=== PATIENT | male | born 1965 | race Caucasian/White ===

== ENCOUNTER 2023-08-17 21:53 | Emergency (ER) | payer OTHER ==
[~2023-08-17] VITALS: Ht 180.3 cm; Wt 99.8 kg
[2023-08-17] MEDS ORDERED: MECLIZINE HCL 25 MG TABLET ONE (23:15)
[2023-08-17] MEDS ORDERED: ONDANSETRON HCL/PF 4 MG/2 ML VIAL ONE (23:15)
[2023-08-17] MEDS: IV NS 0.9% 1,000 ML BAG IV ONE (23:15)
[2023-08-17] MEDS: ONDANSETRON HCL/PF 4 MG/2 ML VIAL IVP ONE (23:16)
[2023-08-17] MEDS: MECLIZINE HCL 12.5 MG TABLET PO ONE (23:16)
[2023-08-17 23:39] LABS: BASOPHILS # (AUTO) 0.1 K/uL (0.0-0.2); BASOPHILS % (AUTO) 0.3 % (0.0-2.0); EOSINOPHILS % (AUTO) 0.1 % (0.0-6.0); HEMATOCRIT 47 % (39-51); HEMOGLOBIN 15.2 g/dL (13.5-17.5); LYMPHOCYTES % (AUTO) 10.8 % (20.0-44.0); MEAN CORPUSCULAR HEMOGLOBIN 28 PG (26.0-33.0); MEAN CORPUSCULAR HGB CONC 33 g/dl (31.0-36.0); MEAN CORPUSCULAR VOLUME 85 fL (80-96); MONOCYTES # (AUTO) 1.1 K/uL (0.1-1.30); MONOCYTES % (AUTO) 5.8 % (2.0-12.0); NEUTROPHILS # (AUTO) 15.4 K/uL (1.8-8.9); PLATELET COUNT (AUTO) 376 K/uL (150-450); RED BLOOD CELL COUNT(AUTO) 5.45 MIL/uL (4.5-6.0); RED CELL DISTRIBUTION WIDTH 14.4 % (11.5-15.0); WHITE BLOOD COUNT (AUTO) 18.6 K/uL (4.3-11.0)
[2023-08-17 23:52] LABS: INR 1.01 (0.91-1.10); PARTIAL THROMBOPLASTIN TIME 25.7 SEC (24.3-34.3); PROTHROMBIN TIME 10.7 SECS (9.2-11.1)
[2023-08-17 23:57] LABS: CALCIUM, SERUM 9.2 mg/dL (8.5-10.1); CARBON DIOXIDE 28 mmol/L (21-32); CHLORIDE 103 mmol/L (98-107); CREATININE 1.2 mg/dL (0.6-1.3); GLUCOSE 125 mg/dL (74-106); SODIUM SERUM 142 mmol/L (136-145); UREA NITROGEN, BLOOD 13 mg/dL (7-18)
[2023-08-18 00:03] LABS: ALANINE AMINOTRANSFERASE 34 U/L (12-78); ALBUMIN 3.7 g/dL (3.4-5.0); ALKALINE PHOSPHATASE 80 U/L (46-116); ASPARTATE AMINOTRANSFERASE 24 U/L (15-37); BILIRUBIN,DIRECT 0.2 mg/dL (0.0-0.2); BILIRUBIN,TOTAL 0.7 mg/dL (0.2-1.0)
[2023-08-18 00:28] LABS: APPEARANCE,URINE CLEAR (CLEAR); BILIRUBIN,URINE 1+ (NEGATIVE); BLOOD, URINE TRACE-INTA Ery/uL (NEGATIVE); COLOR,URINE YELLOW (YELLOW); KETONES,URINE 3+ mg/dL (NEGATIVE); LEUKOCYTE ESTERASE ,URINE NEGATIVE (NEGATIVE); NITRITE, URINE NEGATIVE (NEGATIVE); PH,URINE 6.5 (5.0-8.0); PROTEIN,URINE 1+ mg/dl (NEGATIVE); UGLUCOSE NEGATIVE (NEGATIVE)
[2023-08-18] MEDS ORDERED: MECL-182 PO (00:48)
[2023-08-18] MEDS ORDERED: ONDA4TAB5 PO (00:48)
[2023-08-18 00:59] VITALS: BP 138/89; TEMP 98; O2SAT 96
[2023-08-18 01:53] LABS: ADD URINE CULTURE NO; BACTERIA,URINE 1+ /HPF (None Seen); MUCUS,URINE Few /LPF (None Seen); RBC,URINE 0-2 /HPF (0-2); SQUAMOUS EPITHELIAL CELL,UR None Seen /HPF (None Seen); WBC,URINE 0-2 /HPF (0-3)
[2023-08-19] MEDS ORDERED: GUAI600T53 PO (16:53)
== END 2023-08-18 01:01 | disposition home or self-care (01) ==
LOC: ER 22:06
DX: R42 Dizziness and giddiness (principal); Z79.899 Other long term (current) drug therapy; Z60.2 Problems related to living alone
CPT/HCPCS: 99285; 96374; 70450; 71045; 96361; 93005; 85025; 80048; 80076; 36415; 84484; 85730; 81001; J8597; J2405; J7030

== ENCOUNTER 2023-08-19 12:11 | Inpatient (IN) | payer OTHER ==
[~2023-08-19] VITALS: Ht 175.3 cm; Wt 93.4 kg
[2023-08-19] VITALS (13 sets, daily range): BP systolic 98–154; BP diastolic 64–135; TEMP 100.6; O2SAT 100
[~2023-08-19 12:11] MED LIST: MECL-182 PO; ONDA4TAB5 PO
[2023-08-19] MEDS ORDERED: ATROPINE SULFATE 1 MG/10 ML DISP.SYRIN IV ONE (12:15)
[2023-08-19] MEDS ORDERED: NALOXONE PREFILLED SYRINGE 2 MG/2 ML SYRINGE ONE (12:16)
[2023-08-19] MEDS: NALOXONE PREFILLED SYRINGE 2 MG/2 ML SYRINGE IV ONE (12:21)
[2023-08-19] MEDS: VANCOMYCIN 1 GM in IV D5W 250 ML IV ONE (12:30)
[2023-08-19] MEDS: IV NS 0.9% 1,000 ML BAG IV ONE ×3 (12:30→16:00)
[2023-08-19] MEDS: PIPERACILLIN /TAZOBACTAM 3.375 G in IV D5W 50 ML IV ONE (12:30)
[2023-08-19 13:04] LABS: INR 1.03 (0.91-1.10); PARTIAL THROMBOPLASTIN TIME 27.6 SEC (24.3-34.3); PROTHROMBIN TIME 10.9 SECS (9.2-11.1)
[2023-08-19 13:06] LABS: APPEARANCE,URINE CLEAR (CLEAR); BILIRUBIN,URINE 1+ (NEGATIVE); BLOOD, URINE 2+ Ery/uL (NEGATIVE); COLOR,URINE YELLOW (YELLOW); KETONES,URINE 2+ mg/dL (NEGATIVE); LEUKOCYTE ESTERASE ,URINE NEGATIVE (NEGATIVE); NITRITE, URINE NEGATIVE (NEGATIVE); PROTEIN,URINE 2+ mg/dl (NEGATIVE); UGLUCOSE NEGATIVE (NEGATIVE)
[2023-08-19 13:13] LABS: BASOPHILS % (AUTO) 0.3 % (0.0-2.0); HEMATOCRIT 45 % (39-51); HEMOGLOBIN 14.9 g/dL (13.5-17.5); LYMPHOCYTES # (AUTO) 1.7 K/uL (0.8-4.8); LYMPHOCYTES % (AUTO) 11.1 % (20.0-44.0); MEAN CORPUSCULAR HEMOGLOBIN 28 PG (26.0-33.0); MEAN CORPUSCULAR HGB CONC 33 g/dl (31.0-36.0); MEAN CORPUSCULAR VOLUME 84 fL (80-96); MONOCYTES # (AUTO) 1.4 K/uL (0.1-1.30); NEUTROPHILS # (AUTO) 12.2 K/uL (1.8-8.9); NEUTROPHILS % (AUTO) 79.6 % (43.0-81.0); PLATELET COUNT (AUTO) 343 K/uL (150-450); RED BLOOD CELL COUNT(AUTO) 5.32 MIL/uL (4.5-6.0); RED CELL DISTRIBUTION WIDTH 14.5 % (11.5-15.0); WHITE BLOOD COUNT (AUTO) 15.4 K/uL (4.3-11.0)
[2023-08-19 13:22] LABS: ADD URINE CULTURE NO; BACTERIA,URINE 1+ /HPF (None Seen); MUCUS,URINE Moderate /LPF (None Seen); SQUAMOUS EPITHELIAL CELL,UR None Seen /HPF (None Seen); WBC,URINE NONE SEEN /HPF (0-3)
[2023-08-19 13:23] LABS: AMPHETAMINE, URINE NEGATIVE (NEGATIVE); BARBITURATE, URINE NEGATIVE (NEGATIVE); BENZODIAZEPINE, URINE NEGATIVE (NEGATIVE); COCCAINE, URINE NEGATIVE (NEGATIVE); OPIATE, URINE NEGATIVE (NEGATIVE); PHENCYCLIDINE SCREEN,URINE NEGATIVE (NEGATIVE)
[2023-08-19 13:30] LABS: CANNABINOID, URINE POSITIVE (NEGATIVE)
[2023-08-19 14:13] LABS: ALANINE AMINOTRANSFERASE 23 U/L (12-78); ALBUMIN 3.6 g/dL (3.4-5.0); ALKALINE PHOSPHATASE 69 U/L (46-116); ASPARTATE AMINOTRANSFERASE 18 U/L (15-37); BILIRUBIN,DIRECT 0.2 mg/dL (0.0-0.2); BILIRUBIN,TOTAL 0.8 mg/dL (0.2-1.0); CARBON DIOXIDE 23 mmol/L (21-32); CHLORIDE 104 mmol/L (98-107); GLUCOSE 128 mg/dL (74-106); LIPASE 30 U/L (16-77); POTASSIUM 3.3 mmol/L (3.5-5.1); SODIUM SERUM 141 mmol/L (136-145); TOTAL PROTEIN, SERUM 8.7 g/dL (6.4-8.2); UREA NITROGEN, BLOOD 15 mg/dL (7-18)
[2023-08-19] MEDS: CEFTRIAXONE 2 G in IV D5W 50 ML IV ONE (14:30)
[2023-08-19] MEDS ORDERED: KETAMINE HCL(200MG/20ML) 10 MG/ML VIAL IV ONE (15:00)
[2023-08-19] MEDS: ACYCLOVIR IV 1 GM in IV D5W 250 ML IV ONE (15:00)
[2023-08-19 15:10] LABS: LACTIC ACID 2.7 mmol/L (0.4-2.0)
[2023-08-19] MEDS ORDERED: PROPOFOL 100 ML ONE (15:19)
[2023-08-19] MEDS ORDERED: LORAZEPAM INJ 2 MG/ML VIAL ONE (15:24)
[2023-08-19] MEDS: LORAZEPAM INJ 2 MG/ML VIAL IV ONE (15:26)
[2023-08-19] MEDS: PROPOFOL 200 MG/20 ML VIAL IV ONE (15:28)
[2023-08-19] MEDS: LEVETIRACETAM (500MG) 2,000 MG in IV NS 0.9% 80 ML IV ONE (15:30)
[2023-08-19] MEDS ORDERED: LEVETIRACETAM (500MG) 1,000 MG in IV NS 0.9% 90 ML IV ONE (15:30)
[2023-08-19] MEDS: PROPOFOL 100 ML IV PRN ×2 (15:49→20:14)
[2023-08-19] MEDS ORDERED: GUAI600T53 PO (16:53)
[2023-08-19] MEDS ORDERED: LORAZEPAM INJ 2 MG/ML VIAL IV PRN (18:00)
[2023-08-19] MEDS: POTASSIUM CHLORIDE 20 MEQ TAB.PRT.SR PO ONE (18:00)
[2023-08-19] MEDS ORDERED: ONDANSETRON HCL/PF 4 MG/2 ML VIAL IVP PRN (18:00)
[2023-08-19] MEDS: POTASSIUM CHLORIDE 20 MEQ POWDER PACKET PO ONE (18:00)
[2023-08-19 18:11] LABS: THYROID STIMULATING HORMONE 0.723 uIU/mL (0.358-3.74)
[2023-08-19] MEDS: ACETAMINOPHEN 650 MG/SUPP.RECT RC PRN (20:23)
[2023-08-19] MEDS: CEFTRIAXONE 2 G in IV D5W 100 ML IV SCH (20:28)
[2023-08-19] MEDS: ACYCLOVIR IV 500 MG in IV D5W 100 ML IV SCH (20:31)
[2023-08-19] MEDS: VANCOMYCIN 750 MG in IV D5W 250 ML IV SCH (20:31)
[2023-08-19] MEDS: IV D5/0.45 NACL 1,000 ML IV PRN (20:32)
[2023-08-19] MEDS: IV NS 0.9% 250 ML IV PRN (21:01)
[2023-08-19 23:00] LABS: CSF GLUCOSE 80 mg/dL (40-70); CSF PROTEIN 62.22 mg/dL (15-45)
[2023-08-19] MEDS: POTASSIUM CHLORIDE 20 MEQ POWDER PACKET GT ONE ×2 (23:33)
[2023-08-20] VITALS (25 sets, daily range): BP systolic 98–186; BP diastolic 64–118; TEMP 98.9–101; O2SAT 75–100
[2023-08-20 01:29] LABS: CSF APPEARANCE CLEAR (CLEAR); CSF COLOR COLORLESS (COLORLESS); CSF VOLUME 12.4 mL
[2023-08-20 01:47] LABS: CSF WHITE BLOOD CELL COUNT 14 /cumm (0-5)
[2023-08-20 01:48] LABS: CSF WHITE BLOOD CELL COUNT 4 /cumm (0-5)
[2023-08-20] MEDS: RIFAXIMIN 550 MG TABLET GT SCH (02:08)
[2023-08-20 05:14] LABS: BASOPHILS % (AUTO) 0.4 % (0.0-2.0); EOSINOPHILS % (AUTO) 0.1 % (0.0-6.0); HEMATOCRIT 41 % (39-51); HEMOGLOBIN 13.1 g/dL (13.5-17.5); LYMPHOCYTES # (AUTO) 2.4 K/uL (0.8-4.8); LYMPHOCYTES % (AUTO) 18.6 % (20.0-44.0); MEAN CORPUSCULAR HEMOGLOBIN 28 PG (26.0-33.0); MEAN CORPUSCULAR HGB CONC 32 g/dl (31.0-36.0); MEAN CORPUSCULAR VOLUME 86 fL (80-96); MONOCYTES # (AUTO) 1.3 K/uL (0.1-1.30); MONOCYTES % (AUTO) 10.3 % (2.0-12.0); NEUTROPHILS # (AUTO) 9.1 K/uL (1.8-8.9); NEUTROPHILS % (AUTO) 70.6 % (43.0-81.0); PLATELET COUNT (AUTO) 291 K/uL (150-450); RED BLOOD CELL COUNT(AUTO) 4.77 MIL/uL (4.5-6.0); RED CELL DISTRIBUTION WIDTH 14.6 % (11.5-15.0); WHITE BLOOD COUNT (AUTO) 12.8 K/uL (4.3-11.0)
[2023-08-20 05:29] LABS: CALCIUM, SERUM 8.2 mg/dL (8.5-10.1); MAGNESIUM 1.9 mg/dL (1.8-2.4); PHOSPHORUS 2.8 mg/dL (2.5-4.9)
[2023-08-20] MEDS: LEVETIRACETAM (500MG) 1,000 MG in IV NS 0.9% 90 ML IV SCH ×2 (05:38→21:17)
[2023-08-20 05:47] LABS: THYROID STIMULATING HORMONE 0.62 uIU/mL (0.358-3.74)
[2023-08-20] MEDS: PANTOPRAZOLE 40 MG VIAL IV SCH (08:39)
[2023-08-20 09:45] LABS: ABG BASE EXCESS -0.3 mmol/L; ABG PCO2 33.3 mmHg (35.0-45.0); ABG PH 7.454 (7.350-7.450); ABG PO2 67.1 mmHg (75.0-100.0); ABG TOTAL HEMOGLOBIN 14.9 G/dL (13.5-18.0); COHb 0.5 % (0.5-1.5); MetHb 0.2 % (0.0-1.5); O2Hb 93.3 % (94.0-97.0); SITE, ABG Left Radial; VENT MODE, BG room air
[2023-08-20 09:46] LABS: ABG BASE EXCESS -0.1 mmol/L; ABG OXYGEN SATURATION 97.3 % (92.0-98.5); ABG PCO2 44.9 mmHg (35.0-45.0); ABG PH 7.372 (7.350-7.450); ABG PO2 99.9 mmHg (75.0-100.0); ABG TOTAL HEMOGLOBIN 13.5 G/dL (13.5-18.0); COHb 0.3 % (0.5-1.5); MetHb 0.4 % (0.0-1.5); O2Hb 96.6 % (94.0-97.0); PEEP,BG 5 cm H2O; SITE, ABG Left Radial; VENT MODE, BG AC @ 100%; VT, ABG 500 mL
[2023-08-20 09:50] LABS: ABG BASE EXCESS -1.7 mmol/L; ABG OXYGEN SATURATION 97.1 % (92.0-98.5); ABG PCO2 38.9 mmHg (35.0-45.0); ABG PH 7.389 (7.350-7.450); ABG PO2 92.9 mmHg (75.0-100.0); ABG TOTAL HEMOGLOBIN 13.7 G/dL (13.5-18.0); AaDO2 147.6 mmHg; COHb 0.8 % (0.5-1.5); MetHb 0.3 % (0.0-1.5); PEEP,BG 5 cm H2O; SITE, ABG Left Radial; VT, ABG 500 mL
[2023-08-20] MEDS ORDERED: POTASSIUM CHLORIDE 20 MEQ POWDER PACKET NG SCH (10:00)
[2023-08-20] MEDS: POTASSIUM CL. PREMIX PERIPHER. 50 ML IV SCH (10:56)
[2023-08-20 15:13] LABS: HIV-1 p24 ANTIGEN NON REACTIVE (NONREACTIVE); HIV-1/2 ANTIBODY NON REACTIVE (NONREACTIVE)
[2023-08-20] MEDS: CEFTRIAXONE 2 G in IV D5W 100 ML IV SCH (21:18)
[2023-08-21] VITALS (34 sets, daily range): BP systolic 114–187; BP diastolic 74–118; TEMP 98.6–100.1; O2SAT 97–100
[2023-08-21 04:55] LABS: BASOPHILS # (AUTO) 0.1 K/uL (0.0-0.2); BASOPHILS % (AUTO) 0.6 % (0.0-2.0); EOSINOPHILS # (AUTO) 0.2 K/uL (0.0-0.7); HEMATOCRIT 40 % (39-51); LYMPHOCYTES # (AUTO) 2.4 K/uL (0.8-4.8); LYMPHOCYTES % (AUTO) 22.3 % (20.0-44.0); MEAN CORPUSCULAR HEMOGLOBIN 28 PG (26.0-33.0); MEAN CORPUSCULAR HGB CONC 33 g/dl (31.0-36.0); MEAN CORPUSCULAR VOLUME 85 fL (80-96); MONOCYTES # (AUTO) 1.2 K/uL (0.1-1.30); MONOCYTES % (AUTO) 11.2 % (2.0-12.0); NEUTROPHILS # (AUTO) 6.7 K/uL (1.8-8.9); NEUTROPHILS % (AUTO) 63.9 % (43.0-81.0); PLATELET COUNT (AUTO) 278 K/uL (150-450); RED CELL DISTRIBUTION WIDTH 14.3 % (11.5-15.0); WHITE BLOOD COUNT (AUTO) 10.6 K/uL (4.3-11.0)
[2023-08-21 05:14] LABS: ALBUMIN 2.7 g/dL (3.4-5.0); BILIRUBIN,TOTAL 0.6 mg/dL (0.2-1.0); CALCIUM, SERUM 8.2 mg/dL (8.5-10.1); CREATININE 0.9 mg/dL (0.6-1.3); MAGNESIUM 1.7 mg/dL (1.8-2.4); PHOSPHORUS 3.6 mg/dL (2.5-4.9)
[2023-08-21] MEDS: Magnesium 1GM/D5W 100ML PREMIX 100 ML IV SCH (08:41)
[2023-08-21] MEDS: POTASSIUM CHLORIDE 20 MEQ POWDER PACKET GT SCH (08:42)
[2023-08-21] MEDS ORDERED: JEVITY 1.2 CAL 1,000 ML BOTTLE GT PRN (11:00)
[2023-08-21] MEDS: JEVITY 1.2 CAL 1,000 ML BOTTLE GT PRN (12:00)
[2023-08-21] MEDS: Z GUARD REMEDY 4 OZ OINT TP PRN (13:43)
[2023-08-21 15:52] LABS: C-REACTIVE PROTEIN 0.53 mg/dL (0.0-0.30)
[2023-08-21] MEDS ORDERED: IOHEXOL-300 100 ML VIAL IV ONE (16:02)
[2023-08-21] MEDS ORDERED: CT SWABBABLE VALVE TRANS SET 1 EA INFUS.SET MC ONE (16:02)
[2023-08-21] MEDS ORDERED: IV NS 0.9% 250 ML IV ONE (16:02)
[2023-08-21] MEDS: THIAMINE IV SCH (18:51)
[2023-08-21] MEDS: D5W IV SCH (18:51)
[2023-08-21] MEDS ORDERED: Thiamine 250 MG in IV D5W 50 ML IV SCH (19:00)
[2023-08-22] VITALS (33 sets, daily range): BP systolic 121–176; BP diastolic 75–108; TEMP 97.5–100.1; O2SAT 96–100
[2023-08-22 03:51] LABS: BASOPHILS # (AUTO) 0.1 K/uL (0.0-0.2); BASOPHILS % (AUTO) 0.4 % (0.0-2.0); EOSINOPHILS # (AUTO) 0.5 K/uL (0.0-0.7); EOSINOPHILS % (AUTO) 3.8 % (0.0-6.0); HEMATOCRIT 43 % (39-51); HEMOGLOBIN 13.9 g/dL (13.5-17.5); LYMPHOCYTES # (AUTO) 2.2 K/uL (0.8-4.8); LYMPHOCYTES % (AUTO) 17.4 % (20.0-44.0); MEAN CORPUSCULAR HEMOGLOBIN 28 PG (26.0-33.0); MEAN CORPUSCULAR HGB CONC 32 g/dl (31.0-36.0); MEAN CORPUSCULAR VOLUME 85 fL (80-96); MONOCYTES # (AUTO) 1.3 K/uL (0.1-1.30); MONOCYTES % (AUTO) 10.1 % (2.0-12.0); NEUTROPHILS # (AUTO) 8.6 K/uL (1.8-8.9); NEUTROPHILS % (AUTO) 68.3 % (43.0-81.0); PLATELET COUNT (AUTO) 287 K/uL (150-450); RED BLOOD CELL COUNT(AUTO) 5.05 MIL/uL (4.5-6.0); RED CELL DISTRIBUTION WIDTH 14.4 % (11.5-15.0); WHITE BLOOD COUNT (AUTO) 12.6 K/uL (4.3-11.0)
[2023-08-22 04:05] LABS: CALCIUM, SERUM 8.4 mg/dL (8.5-10.1); CREATININE 0.9 mg/dL (0.6-1.3); MAGNESIUM 2.1 mg/dL (1.8-2.4); POTASSIUM 3.1 mmol/L (3.5-5.1)
[2023-08-22 07:07] LABS: VARICELLA ZOSTER IgG 1619 index (Immune >165)
[2023-08-22 08:10] LABS: FOLIC ACID 14.6 ng/mL (>3.0)
[2023-08-22] MEDS: PANTOPRAZOLE 40 MG/PACK PACK NG SCH (09:27)
[2023-08-22] MEDS: LEVETIRACETAM SOL (5 ML) 100 MG/ML UDC GT SCH (09:27)
[2023-08-22] MEDS ORDERED: POTASSIUM CL. PREMIX PERIPHER. 50 ML IV SCH (11:30)
[2023-08-22] MEDS: POTASSIUM CHLORIDE 20 MEQ POWDER PACKET NG SCH (12:00)
[2023-08-22 14:07] LABS: *ANA ANTI-CENTROMERE B AB <0.2 AI (0.0-0.9); *ANA ANTI-DNA(DS) AB, QN <1 IU/mL (0-9); *ANA ANTI-JO-1 <0.2 AI (0.0-0.9); *ANA ANTICHROMATIN ANTIBODY <0.2 AI (0.0-0.9); *ANA RNP ANTIBODIES <0.2 AI (0.0-0.9); *ANA SJOGREN'S ANTI-SS-A <0.2 AI (0.0-0.9); *ANA SJOGREN'S ANTI-SS-B <0.2 AI (0.0-0.9); *ANAANTI-SCLERODERMA-70 AB <0.2 AI (0.0-0.9); *ANASMITH AB <0.2 AI (0.0-0.9)
[2023-08-22] MEDS: ACETAMINOPHEN 650 MG/20.3 ML UDC NG PRN (20:32)
[2023-08-23] VITALS (51 sets, daily range): BP systolic 118–183; BP diastolic 72–113; TEMP 98.6–99; O2SAT 94–100
[2023-08-23 04:58] LABS: CALCIUM, SERUM 8.2 mg/dL (8.5-10.1); MAGNESIUM 1.9 mg/dL (1.8-2.4); PHOSPHORUS 3.6 mg/dL (2.5-4.9)
[2023-08-23 05:19] LABS: BASOPHILS # (AUTO) 0.1 K/uL (0.0-0.2); BASOPHILS % (AUTO) 0.5 % (0.0-2.0); EOSINOPHILS # (AUTO) 0.9 K/uL (0.0-0.7); HEMATOCRIT 40 % (39-51); HEMOGLOBIN 13.1 g/dL (13.5-17.5); LYMPHOCYTES # (AUTO) 2.4 K/uL (0.8-4.8); LYMPHOCYTES % (AUTO) 19.3 % (20.0-44.0); MEAN CORPUSCULAR HEMOGLOBIN 28 PG (26.0-33.0); MEAN CORPUSCULAR HGB CONC 33 g/dl (31.0-36.0); MEAN CORPUSCULAR VOLUME 85 fL (80-96); MONOCYTES # (AUTO) 1.2 K/uL (0.1-1.30); MONOCYTES % (AUTO) 9.4 % (2.0-12.0); NEUTROPHILS # (AUTO) 8.1 K/uL (1.8-8.9); NEUTROPHILS % (AUTO) 63.8 % (43.0-81.0); PLATELET COUNT (AUTO) 286 K/uL (150-450); RED BLOOD CELL COUNT(AUTO) 4.75 MIL/uL (4.5-6.0); RED CELL DISTRIBUTION WIDTH 14.1 % (11.5-15.0); WHITE BLOOD COUNT (AUTO) 12.6 K/uL (4.3-11.0)
[2023-08-23] MEDS: POTASSIUM CHLORIDE 20 MEQ POWDER PACKET NG SCH (11:14)
[2023-08-23 13:10] LABS: VDRL, CSF Non Reactive (Non Rea:<1:1)
[2023-08-23 14:07] LABS: *HSV 1 DNA PCR Negative (Negative); *HSV 2 DNA PCR Negative (Negative)
[2023-08-23 16:11] LABS: *CRYPTOCOCCUS AG, CSF Negative (Negative)
[2023-08-23] MEDS: hydrALAZINE HCL IV 20 MG VIAL IV PRN (19:00)
[2023-08-24] VITALS (50 sets, daily range): BP systolic 122–175; BP diastolic 70–104; TEMP 98–99; O2SAT 96–100
[2023-08-24 05:08] LABS: BASOPHILS # (AUTO) 0.1 K/uL (0.0-0.2); BASOPHILS % (AUTO) 0.5 % (0.0-2.0); EOSINOPHILS # (AUTO) 0.9 K/uL (0.0-0.7); EOSINOPHILS % (AUTO) 6.3 % (0.0-6.0); HEMATOCRIT 42 % (39-51); HEMOGLOBIN 13.5 g/dL (13.5-17.5); LYMPHOCYTES % (AUTO) 14.6 % (20.0-44.0); MEAN CORPUSCULAR HEMOGLOBIN 28 PG (26.0-33.0); MEAN CORPUSCULAR HGB CONC 32 g/dl (31.0-36.0); MEAN CORPUSCULAR VOLUME 85 fL (80-96); MONOCYTES # (AUTO) 1.4 K/uL (0.1-1.30); NEUTROPHILS # (AUTO) 9.5 K/uL (1.8-8.9); NEUTROPHILS % (AUTO) 68.6 % (43.0-81.0); PLATELET COUNT (AUTO) 335 K/uL (150-450); RED BLOOD CELL COUNT(AUTO) 4.91 MIL/uL (4.5-6.0); RED CELL DISTRIBUTION WIDTH 13.9 % (11.5-15.0); WHITE BLOOD COUNT (AUTO) 13.9 K/uL (4.3-11.0)
[2023-08-24] MEDS: JEVITY 1.2 CAL 1,000 ML BOTTLE GT PRN (05:56)
[2023-08-24 06:04] LABS: CALCIUM, SERUM 8.1 mg/dL (8.5-10.1); CREATININE 0.9 mg/dL (0.6-1.3); MAGNESIUM 2.1 mg/dL (1.8-2.4); PHOSPHORUS 3.3 mg/dL (2.5-4.9); POTASSIUM 3.1 mmol/L (3.5-5.1)
[2023-08-24 08:44] LABS: BAND % (MANUAL) 1 % (0.0-5.0); EOSINOPHILS % (MANUAL) 5 % (0-4); LYMPHOCYTES % (MANUAL) 13 % (16-48); MONOCYTES % (MANUAL) 11 % (0-11.0); NEUTROPHILS % (MANUAL) 70 (42-76); PLATELET ESTIMATE ADEQUATE
[2023-08-24] MEDS: POTASSIUM CHLORIDE 20 MEQ POWDER PACKET GT SCH (09:47)
[2023-08-24 11:09] LABS: *WEST NILE VIRUS, IgG, SERUM Negative (Negative); *WEST NILE VIRUS, IgM, SERUM Negative (Negative)
[2023-08-24] MEDS: MODAFINIL 100 MG TABLET NG SCH (15:32)
[2023-08-25] VITALS (22 sets, daily range): BP systolic 112–180; BP diastolic 59–98; TEMP 98.4–99.1; O2SAT 95–100
[2023-08-25 05:41] LABS: CALCIUM, SERUM 8.2 mg/dL (8.5-10.1); CREATININE 0.9 mg/dL (0.6-1.3); POTASSIUM 3.5 mmol/L (3.5-5.1)
[2023-08-25] MEDS: Thiamine 250 MG in IV D5W 50 ML IV SCH (08:22)
[2023-08-25] MEDS: CHLORHEXIDINE GLUCONATE 15 ML UDC MM SCH (10:10)
[2023-08-25 11:15] LABS: BASOPHILS # (AUTO) 0.1 K/uL (0.0-0.2); BASOPHILS % (AUTO) 0.4 % (0.0-2.0); EOSINOPHILS # (AUTO) 0.6 K/uL (0.0-0.7); EOSINOPHILS % (AUTO) 3.4 % (0.0-6.0); HEMATOCRIT 42 % (39-51); HEMOGLOBIN 13.5 g/dL (13.5-17.5); LYMPHOCYTES # (AUTO) 1.8 K/uL (0.8-4.8); MEAN CORPUSCULAR HEMOGLOBIN 28 PG (26.0-33.0); MEAN CORPUSCULAR HGB CONC 33 g/dl (31.0-36.0); MEAN CORPUSCULAR VOLUME 86 fL (80-96); MONOCYTES # (AUTO) 1.4 K/uL (0.1-1.30); MONOCYTES % (AUTO) 8.6 % (2.0-12.0); NEUTROPHILS # (AUTO) 12.5 K/uL (1.8-8.9); NEUTROPHILS % (AUTO) 76.6 % (43.0-81.0); PLATELET COUNT (AUTO) 371 K/uL (150-450); RED BLOOD CELL COUNT(AUTO) 4.84 MIL/uL (4.5-6.0); RED CELL DISTRIBUTION WIDTH 14.2 % (11.5-15.0); WHITE BLOOD COUNT (AUTO) 16.3 K/uL (4.3-11.0)
[2023-08-25] MEDS: CEFEPIME 2 GM in IV D5W 100 ML IV SCH (14:14)
[2023-08-25] MEDS: VANCOMYCIN HCL 1.25 GM in IV D5W 250 ML IV ONE (14:20)
[2023-08-25] MEDS ORDERED: VANCOMYCIN 750 MG in IV D5W 250 ML IV SCH (22:00)
[2023-08-27 10:10] LABS: VITAMIN B1 THIAMINE,WB 88.3 nmol/L (66.5-200.0)
[2023-08-27 16:09] LABS: METHYLMALONIC ACID 83 nmol/L (0-378); VITAMIN B6 4.7 ug/L (3.4-65.2)
== END 2023-08-25 16:55 | disposition short-term general hospital (02) | DRG 870 ==
LOC: ER 12:14 → TRANSITION 17:55 → ICU 18:13
PROVIDERS: ADMIT Nurse Practitioner Family; ATTEND Nurse Practitioner Acute Care
PROC: 5A1955Z Respiratory Ventilation, Greater than 96 Consecutive Hours (ICD-10-PCS; principal; 2023-08-19)
PROC: 0BH17EZ Insertion of Endotracheal Airway into Trachea, Via Natural or Artificial Opening (ICD-10-PCS; 2023-08-19)
PROC: 009U3ZX Drainage of Spinal Canal, Percutaneous Approach, Diagnostic (ICD-10-PCS; 2023-08-19)
PROC: B01BYZZ Fluoroscopy of Spinal Cord using Other Contrast (ICD-10-PCS; 2023-08-19)
PROC: 02HV33Z Insertion of Infusion Device into Superior Vena Cava, Percutaneous Approach (ICD-10-PCS; 2023-08-21)
PROC: B548ZZA Ultrasonography of Superior Vena Cava, Guidance (ICD-10-PCS; 2023-08-21)
DX: A41.9 Sepsis, unspecified organism (principal); J96.90 Respiratory failure, unspecified, unspecified whether with hypoxia or hypercapnia; G92.8 Other toxic encephalopathy; G04.90 Encephalitis and encephalomyelitis, unspecified; E87.20 Acidosis, unspecified; J98.11 Atelectasis; A87.9 Viral meningitis, unspecified; E87.6 Hypokalemia; R65.20 Severe sepsis without septic shock; E66.9 Obesity, unspecified; T17.990A Other foreign object in respiratory tract, part unspecified in causing asphyxiation, initial encounter; E83.42 Hypomagnesemia; Z68.30 Body mass index [BMI] 30.0-30.9, adult; R78.5 Finding of other psychotropic drug in blood; R32 Unspecified urinary incontinence
CPT/HCPCS: 31720; 36415; 36569; 36600; 70450-TC; 70470-TC; 71045-TC; 72125-TC; 80048-TC; 80053-TC; 80061-TC; 80076-TC; 80202-TC; 81001; 82140-TC; 82607-TC; 82803-TC; 82962-TC; 83605-TC; 83690-TC; 83735-TC; 83921; 84100-TC; 84207; 84425; 84443-TC; 84484-TC; 85025-TC; 85652-TC; 85730-TC; 86140-TC; 86225; 86235; 86592; 86658; 86787; 86788; 86789; 87040-TC; 87806; 87899; 88108-TC; 89051-TC; 93307-TC; 94003-TC; 94640-TC; 94799-TC; 95819-TC; A4223; A6403; C9113; G0378; G0480; J0133; J0360; J0461; J0692; J0696; J1953; J2060; J2310; J2405; J2543; J2704; J3370; J3371; J3411; J3475; J3480; J3490; J7030; J7050; J7060; Q9967